=== PATIENT | male | born 1960 | race African-American/Black ===

== ENCOUNTER 2018-01-13 08:37 | Day surgery (SDC) | payer MEDICAID, OTHER ==
[2018-01-13 11:31] LABS: HEMATOCRIT 40.8 % (42.0-52.0); HEMOGLOBIN 14.1 g/dL (14.0-18.0); MEAN CORPUSCULAR HEMOGLOBIN 33.1 pg (28.0-32.0); MEAN CORPUSCULAR VOLUME 95.5 fL (80.0-94.0); PLATELET 176 x1000/uL (130-400); RED BLOOD CELL COUNT 4.27 mill/uL (4.7-6.1); RED CELL DISTRIBUTION WIDTH 14.5 % (11.6-14.6)
[2018-01-13 11:32] LABS: CHLORIDE 105 mEq/L (98-107)
[2018-01-13 11:37] LABS: PROTHROMBIN TIME 10.3 sec (9.1-11.1)
[2018-01-13] MEDS ORDERED: IODIXANOL 320MG/ML 100 ML BOTTLE IV ONE (13:07)
[2018-01-13] MEDS ORDERED: LIDOCAINE HCL 1% 10 MG/ML 10ML VIAL ONE (13:07)
[2018-01-13] MEDS ORDERED: MIDAZOLAM HCL 2 MG/2 ML VIAL ONE (13:39)
[2018-01-13] MEDS ORDERED: FENTANYL CITRATE/PF 50MCG/ML 2ML VIAL ONE (13:39)
[2018-01-13] MEDS ORDERED: NITROGLYCERIN 50MCG/ML 10ML VIAL (CATH LAB) IV ONE (13:59)
[2018-01-13] MEDS ORDERED: NICARDIPINE 100MCG/ML 10ML VIAL (CATH LAB) IV ONE (13:59)
[2018-01-13] MEDS ORDERED: ONDANSETRON HCL 4MG/2ML INJ IV PRN (14:15)
[2018-01-13] MEDS ORDERED: MORPHINE SULFATE 2 MG/ML CPJ (NOT FOR IM USE) IV PRN (14:15)
[2018-01-13] MEDS ORDERED: ACETAMINOPHEN 325MG TABLET PO PRN (14:15)
== END 2018-01-13 19:30 | disposition home or self-care (01) ==
LOC: EDBD 08:37 → CCL 08:37
PROVIDERS: ATTEND Internal Medicine Cardiovascular Disease
DX: R07.9 Chest pain, unspecified (principal); I42.9 Cardiomyopathy, unspecified; E78.5 Hyperlipidemia, unspecified; R06.02 Shortness of breath; Z98.890 Other specified postprocedural states; I50.9 Heart failure, unspecified; Z95.0 Presence of cardiac pacemaker; Z79.899 Other long term (current) drug therapy; Z79.82 Long term (current) use of aspirin
CPT/HCPCS: 36415; 80048; 85027; 85610; 93458; 99152; C1760; C1769; C1887; C1893; J1644; J2250; J3010; J3490; Q9967